=== PATIENT | male | born 1970 | race Caucasian/White ===

== ENCOUNTER 2019-01-20 07:00 | Day surgery (SDC) | payer OTHER ==
[2019-01-20] MEDS ORDERED: cefTRIAXone 2 GM VIAL ONE (07:09)
[2019-01-20] MEDS ORDERED: LACTATED RINGERS 1,000 ML IV ONE ×2 (07:11→10:51)
[2019-01-20] MEDS ORDERED: BUPIVACAINE 0.25% PF 30 ML VIAL ONE (07:55)
[2019-01-20] MEDS ORDERED: EPINEPHrine 1 MG/ML AMP ONE (07:55)
--- NOTE | 2019-01-20 07:56 | ANESTHESIA ---
Pre-Anesthesia VS, & Labs - Diagnosis Right shoulder biceps tendonitis - Procedure Right shoulder arthroscopy, open biceps tenodesis, distal clavicle excision, subacromial decompression Vital Signs: Temp Pulse Resp BP Pulse Ox 36.6 C 66 18 121/78 98 01/20/19 07:25 01/20/19 07:25 01/20/19 07:25 01/20/19 07:25 01/20/19 07:25 Height 5 ft 9.5 in Weight (kg) 90.72 kg - NPO >8 hours Home Medications and Allergies Home Medications: Ambulatory Orders Fluticasone [Flonase] 1 sprays SANDY BID 01/18/19 Loratadine [Claritin] 10 mg PO 01/18/19 Naproxen [Naprosyn] 500 mg PO BID PRN 01/18/19 Omeprazole 20 mg PO 01/18/19 Tramadol HCl [Ultram] 50 mg PO PRN 01/18/19 Fluticasone [Flonase] 1 sprays SANDY BID 01/18/19 Loratadine [Claritin] 10 mg PO 01/18/19 Naproxen [Naprosyn] 500 mg PO BID PRN 01/18/19 Omeprazole 20 mg PO 01/18/19 Tramadol HCl [Ultram] 50 mg PO PRN 01/18/19 Allergies/Adverse Reactions: Allergies Allergy/AdvReac Type Severity Reaction Status Date / Time No Known Drug Allergies Allergy Verified 01/18/19 09:31 Anes History & Medical History - Anesthetic History Anesthesia Complications: reports: No previous complications Family history of Anesthesia Complications: Denies Family history of Malignant Hyperthermia: Denies - Medical History Cardiovascular: reports: None Pulmonary: reports: Sleep apnea, CPAP use Gastrointestinal: reports: GERD Urinary: reports: None Neuro: reports: None Musculoskeletal: reports: None, Chronic back pain, Other Endocrine/Autoimmune: reports: None Blood Disorders: reports: None Skin: reports: None Smoking Status: Former smoker Psychosocial: reports: No issues indicated - Surgical History Eyes Ears Nose Throat (EENT): Tonsil/Adenoidectomy Orthopedic: Shoulder arthroplasty, Other Exam General: Alert Dental: WNL Mouth Opening: Greater than 4 Fingerbreadths Neck Mobility: Reduced Mallampati classification: II Thyromental Distance: greater than 6 cm Respiratory: Lungs clear Cardiovascular: Regular rate Plan Anesthesia Type: General, Interscalene Block Consent for Procedure(s) Verified and Reviewed: Yes Code Status: Attempt Resuscitation ASA classification: 2-Mild systemic disease Is this case an emergency?: No
[2019-01-20] MEDS ORDERED: fentaNYL 100 MCG/2 ML VIAL IVP ONE (08:45)
[2019-01-20] MEDS ORDERED: ONDANSETRON 4 MG/2 ML VIAL IVP ONE (08:45)
[2019-01-20] MEDS ORDERED: PROPOFOL 200 MG/20 ML VIAL IVP ONE (08:45)
[2019-01-20] MEDS ORDERED: NEOSTIGMINE 1 MG/1 ML 10 ML MDV IVP ONE (08:45)
[2019-01-20] MEDS ORDERED: ROCURONIUM 50 MG/5 ML VIAL IVP ONE (08:45)
[2019-01-20] MEDS ORDERED: GLYCOPYRROLATE 1 MG/5 ML VIAL IVP ONE (08:45)
[2019-01-20] MEDS ORDERED: DEXAMETHASONE 4 MG/ML VIAL IVP ONE (08:45)
[2019-01-20] MEDS ORDERED: KETOROLAC 30 MG/ML VIAL IVP ONE (08:45)
[2019-01-20] MEDS ORDERED: MIDAZOLAM 2 MG/2 ML VIAL IVP ONE (08:45)
[2019-01-20] MEDS ORDERED: ROPIVACAINE 0.5% PF 20 ML AMPULE EP ONE (08:45)
[2019-01-20] MEDS ORDERED: BUPIVACAINE 0.25% PF 30 ML VIAL SUBQ ONE ×2 (10:18→11:40)
[2019-01-20] MEDS ORDERED: ONDANSETRON 4 MG/2 ML VIAL IVP PRN (11:56)
[2019-01-20] MEDS ORDERED: oxyCODONE 5 MG TABLET PO PRN (11:56)
--- NOTE | 2019-01-20 12:07 | OPERATIVE REPORT ---
Operative Report - General Procedure Date: 01/20/19 Planned Procedure: right shoulder scope debridement. SAD. DCE. BT Pre-Op Diagnosis: right shoulder pain, impingement. ac arthritis. biceps tendinitis Procedure Performed: Right shoulder scope limited debridement. subacromial decompression open biceps tenodesis open distal clavicle excision Post Op Diagnosis: same - Procedure Note Primary Surgeon: Rosas Solo Secondary Surgeon: Rainer Estimated Blood Loss (mL): 50 Complications: None - Other Other Information/Narrative: DETAILED PROCEDURE: Right shoulder arthroscopy with limited debridement Right shoulder subacromial decompression Right shoulder open biceps tenodesis Right shoulder open distal clavicle excision IMPLANTS: Fiber tach with tape by [email or web address] POSTOPERATIVE PLAN: 0-2 weeks-Sling at all times. Pendulum exercises 5 times per day. 2-6 weeks-Passive and active range of motion without limitations. No active flexion of the biceps 6-12 weeks-Gradually increase strengthening focusing on rotator cuff and scapular stabilizers per protocol. 16 weeks and beyond-Introduce dynamic activities. EXAMINATION UNDER ANESTHESIA: ROM: Full Anterior load and shift: Normal Posterior load and shift: Normal Inferior sulcus: No laxity ARTHROSCOPIC FINDINGS: Rotator interval: Intact Biceps tendon & SLAP: Type II SLAP lesion. Biceps tenodesis was performed Subscapularis: Insertion was intact and probed extensively Rotator Cuff: Intact from the articular and bursal sides HAGL: None Labrum: SLAP tear extended posteriorly but the posterior labrum itself was not unstable Glenoid Cartilage: Intact Humeral Head Cartilage: Intact INDICATION FOR SURGERY: 48-year-old male with right shoulder pain consistent with ac joint arthritis, biceps tendinitis, and subacromial impingement. Symptoms have been present for over 2 years and 4 months ago they got worse to the point where he could no longer do push-ups. Nonoperative managment failed to resolve symptoms. The risks, benefits, and alternatives were discussed. Risks included pain, bleeding, infection, damage to nearby structures, lack of symptom relief, implant complications, stiffness, need for further surgeries, DVT, PE, stroke, and even . He signed a written consent form. PROCEDURE IN DETAIL: The patient was met in the preoperative holding on the day of the procedure. Operative extremity was signed. Consent was verified. They desired to proceed. Regional anesthesia was obtained in the preoperative area. They were brought to the operating room and surrendered to anesthesia. Once general anesthesia was obtained they were placed in the lateral decubitus position with the operative side up. An axillary roll was placed and all bony prominences were well-padded. A surgical timeout was held to confirm the patient procedure, identity, procedure, laterality, allergies, images, and antibiotics. All were in agreement we proceeded. A standard diagnostic arthroscopy was performed utilizing posterior and anterosuperior portals. The anterosuperior portal was created under direct visualization and localized with a spinal needle. The 7 mm cannula was placed anteriorly. The findings of the diagnostic arthroscopy can be found above. I then used a shaver to debride a portion of exuberant synovium as well as the unstable portions of the SLAP lesion. I then used a biter to take the biceps tendon at its insertion and debrided the stump with a shaver. I visualized the posterior labrum from the front and placed a blue cannula in the back. I probed the posterior labral extensively and found there to be a crack but the labrum itself was stable. SUBACROMIAL DECOMPRESSION: The instruments and cannula were then removed from the glenohumeral joint. The scope trocar was placed in the posterior portal and the acromion was felt. It was then inserted just under the acromion scraping along the bone until the CA ligament was felt. The scope trocar was then brought just lateral to the CA ligament and out the anterior incision. The cannula was then brought over the scope trocar arthroscope were inserted. The arthroscope was backed up until the shaver and arthroscope in the subacromial space. I then systemically debrided the bursa using a sucker shaver and radiofrequency ablation wand. A direct lateral incision was made and the bursectomy and decompression was completed through the lateral incision. All soft tissue was debrided from the underside of the acromion and the posterior edge of the CA ligament was lifted. The shaver was placed on bur mode to take the bottom 2 mm of the acromion and any bumps that were protruding. I brought this dissection all the way over to the AC joint and ensure that there was no bony lesions that would cause impingement. Care was taken to keep the deltoid fascia intact. The rotator cuff was then evaluated and there was no full- thickness tear. Final images were taken MINI OPEN BICEPS TENODESIS: A 4 cm incision was made near the axillary fold centered over the pectoralis major tendon. Electrocautery was used to obtain hemostasis. The fascia was opened with dissection scissors. Blunt digital dissection was used to identify the intertubercular groove just under the pectoralis major tendon. The long head of the biceps tendon was visualized within this interval. The short head of the biceps was retracted with my finger and the right angle was used to deliver the tendon of the long head of the biceps out of the wound. A tee elevator was then used to debride all synovial tissue from the intertubercular groove. A fibertack was placed high within the groove. Both limbs of the fibertack were pulled on and it was well fixed. I then whipstitched the biceps tendon starting 2 cm proximal to the musculotendinous junction down to the musculotendinous junction and back up to the same 2 cm location with a single limb of the suture tack. The other suture was placed once through the tendon at the 2 cm location. I then cut all excess tendon off. The suture limb that was passed the single time was then pulled on and this reduced the tendon nicely into the groove. The elbow was fully straightened and there was no excess tension on the repair site. I then tied 7 reverse half hitches alternating to secure the tendon in its place. The wound was then irrigated copiously. OPEN DISTAL CLAVICLE EXCISION: A 5 cm incision was made in line with the clavicle, centered over the acromioclavicular joint. Electrocautery was used to obtain hemostasis. Full-thickness skin flaps were made at the level of the fascia/joint capsule. A full-thickness longitudinal was made longitudinally to open the acromioclavicular joint. Electrocautery was used to dissect the joint capsule from the bony surfaces. 2 Homans were placed around the distal clavicle. Rongeur was used to debride the intra-articular disc. An 8 mm resection was measured and performed with a sagittal saw. Care was taken to ensure this cut was parallel to the joint surface. All sharp bony edges were rounded. A finger was placed with into the defect and the arm was adducted fully without any impingement in the joint. The joint was then irrigated copiously. A watertight capsular and fascial closure was performed with 0 Vicryl. The portal sites were then closed with 3-0 Monocryl buried. Any open incisions were closed with 2-0 Vicryl in the dermis and a running 3-0 Monocryl in the skin. Mastisol and Steri-Strips were applied. A sterile dressing and a sling was applied. A sling was placed. The patient was awakened and transferred to the recovery room.
[2019-01-20 15:05] VITALS: BP 101/60
== END 2019-01-20 07:01 | disposition home or self-care (01) ==
LOC: SDS 07:00
PROVIDERS: ATTEND Orthopaedic Surgery
PROC: 0LS10ZZ Reposition Right Shoulder Tendon, Open Approach (ICD-10-PCS; 2019-01-20)
PROC: 0PB90ZZ Excision of Right Clavicle, Open Approach (ICD-10-PCS; 2019-01-20)
PROC: 0RNJ4ZZ Release Right Shoulder Joint, Percutaneous Endoscopic Approach (ICD-10-PCS; principal; 2019-01-20 08:45)
DX: S43.431A Superior glenoid labrum lesion of right shoulder, initial encounter (principal); M75.21 Bicipital tendinitis, right shoulder; G47.30 Sleep apnea, unspecified; K21.9 Gastro-esophageal reflux disease without esophagitis; M54.9 Dorsalgia, unspecified; G89.29 Other chronic pain; X50.9XXA Other and unspecified overexertion or strenuous movements or postures, initial encounter; Z79.891 Long term (current) use of opiate analgesic; Z87.891 Personal history of nicotine dependence
CPT/HCPCS: 23120; 23430; 29822; C1713; J7120

== ENCOUNTER 2020-02-06 08:11 | Day surgery (SDC) | payer OTHER ==
[2020-02-06] MEDS ORDERED: cefTRIAXone 2 GM VIAL ONE (08:17)
[2020-02-06] MEDS ORDERED: BUPIVACAINE 0.25% PF 30 ML VIAL ONE (08:24)
[2020-02-06] MEDS ORDERED: EPINEPHrine 1 MG/ML AMP ONE (08:27)
[2020-02-06] MEDS ORDERED: LACTATED RINGERS 1,000 ML IV ONE ×2 (08:43→12:15)
[2020-02-06] MEDS ORDERED: MIDAZOLAM 2 MG/2 ML VIAL IVP ONE (08:49)
[2020-02-06] MEDS ORDERED: ONDANSETRON 4 MG/2 ML VIAL IVP ONE (08:49)
[2020-02-06] MEDS ORDERED: KETOROLAC 30 MG/ML VIAL IVP ONE (08:49)
[2020-02-06] MEDS ORDERED: ACETAMINOPHEN 1,000 MG/100 ML 100 ML IV ONE (08:49)
[2020-02-06] MEDS ORDERED: DEXAMETHASONE 4 MG/ML VIAL IVP ONE (08:49)
[2020-02-06] MEDS ORDERED: fentaNYL 100 MCG/2 ML VIAL IVP ONE (08:49)
--- NOTE | 2020-02-06 08:51 | ANESTHESIA ---
Pre-Anesthesia VS, & Labs - Diagnosis left shoulder pain, biceps tendinitis - Procedure left shoulder arthroscopy, subacromial decompression, possible biceps tenodesis Height 5 ft 9.5 in - NPO >8 hours Home Medications and Allergies Fluticasone [Flonase] 1 sprays SANDY BID 01/18/19 Loratadine [Claritin] 10 mg PO 01/18/19 Naproxen [Naprosyn] 500 mg PO BID PRN 01/18/19 Omeprazole 20 mg PO 01/18/19 Tramadol HCl [Ultram] 50 mg PO PRN 01/18/19 Allergies/Adverse Reactions: Allergies Allergy/AdvReac Type Severity Reaction Status Date / Time No Known Drug Allergies Allergy Verified 01/18/19 09:31 Anes History & Medical History - Anesthetic History Anesthesia Complications: reports: No previous complications - Medical History Cardiovascular: reports: None Pulmonary: reports: Sleep apnea, CPAP use Gastrointestinal: reports: GERD Urinary: reports: None Neuro: reports: None Musculoskeletal: reports: None, Chronic back pain, Other Endocrine/Autoimmune: reports: None Blood Disorders: reports: None Skin: reports: None Smoking Status: Former smoker - Surgical History Eyes Ears Nose Throat (EENT): Tonsil/Adenoidectomy Orthopedic: Shoulder arthroplasty, Other Exam General: Alert Dental: WNL Mallampati classification: II Thyromental Distance: greater than 6 cm Respiratory: Lungs clear Cardiovascular: Regular rate, Normal S1, Normal S2 Mental/Cognitive Status: Alert/Oriented X3 Plan Anesthesia Type: General, Interscalene Block Consent for Procedure(s) Verified and Reviewed: Yes Code Status: Attempt Resuscitation ASA classification: 2-Mild systemic disease Is this case an emergency?: No
--- NOTE | 2020-02-06 10:23 | ANESTHESIA PROCEDURE NOTE ---
Diagnosis: left shoulder pain Procedure: left interscalene block Consent for Procedure(s) Verified and Reviewed: Yes Height and Weight: Height 5 ft 9 in Weight (kg) 96.1 kg Vital Signs: Temp Pulse Resp BP Pulse Ox 36.6 C 63 16 119/80 97 02/06/20 08:43 02/06/20 08:43 02/06/20 08:43 02/06/20 08:43 02/06/20 08:43 Allergies No Known Drug Allergies Allergy (Verified 01/18/19 09:31) Requesting Provider: Coby ASA classification: 2-Mild systemic disease Is this case an emergency?: No Anes. Monitoring and Equipment: Non-invasive BP, Pulse oximetery Anes. Procedure Start Time: 08:40 Anes. Procedure Stop Time: 08:46 Procedure Notes: US guidance, see progress notes for image, chloraprep, TO with RN, ropivicaine 20cc 0.5% with 10 cc lidocaine 2% and Decadron 4mg. Injected in 5cc increments to total 30cc, patient tolerated well with light sedation. To OR Anesth Central Line Template - Central Line Central Line Preparation: Consent Obtained
[2020-02-06] MEDS ORDERED: oxyCODONE 5 MG TABLET PO PRN (12:25)
[2020-02-06] MEDS ORDERED: ONDANSETRON 4 MG/2 ML VIAL IVP PRN (12:25)
--- NOTE | 2020-02-06 12:34 | OPERATIVE REPORT ---
Operative Report - Other Other Information/Narrative: Date of Surgery: 06 February 2020 Pre-Op Diagnosis: Left shoulder bursitis/impingement. Left shoulder AC joint arthritis. Left shoulder SLAP tear Procedure: Left shoulder arthroscopy with SLAP debridement, Subacromial decompression, open distal clavicle excision Postop Diagnosis: Left shoulder bursitis/impingement. Left shoulder AC joint arthritis. Left shoulder SLAP tear. Primary Surgeon: Rosas Solo Secondary Surgeon: None Complications: None EBL: 50 cc IMPLANTS: None POSTOPERATIVE PLAN: 0-2 weeks-Sling at all times. Pendulum exercises 5 times per day. 2-6 weeks-Passive and active range of motion without limitations. 6-12 weeks-Gradually increase strengthening focusing on rotator cuff and scapular stabilizers per protocol. 16 weeks and beyond-Introduce dynamic activities. EXAMINATION UNDER ANESTHESIA: ROM: Full Anterior load and shift: Stable Posterior load and shift: Stable Inferior sulcus: Stable ARTHROSCOPIC FINDINGS: Rotator interval: Normal Biceps tendon & SLAP: Type I SLAP tear. Biceps tendon without tear. Biceps anchor intact. SLAP tear was debrided Subscapularis: Normal Rotator Cuff: Normal and without tear HAGL: None Labrum: SLAP tear extended posteriorly but there were no unstable sections Glenoid Cartilage: Normal Humeral Head Cartilage: Normal INDICATION FOR SURGERY: 1 year of insidious onset left shoulder pain that is worse with overhead activities. It is located superiorly and laterally with some mechanical sensations. Imaging confirmed AC joint arthritis and bursitis nonoperative managment failed to resolve symptoms. The risks, benefits, and alternatives were discussed. Risks included pain, bleeding, infection, damage to nearby structures, lack of symptom relief, implant complications, stiffness, need for further surgeries, DVT, PE, stroke, and even . He signed a written consent form. PROCEDURE IN DETAIL: The patient was met in the preoperative holding on the day of the procedure. Operative extremity was signed. Consent was verified. They desired to proceed. Regional anesthesia was obtained in the preoperative area. They were brought to the operating room and surrendered to anesthesia. Once general anesthesia was obtained they were placed in the lateral decubitus position with the operative side up. An axillary roll was placed and all bony prominences were well-padded. A surgical timeout was held to confirm the patient procedure, identity, procedure, laterality, allergies, images, and antibiotics. All were in agreement we proceeded. A standard diagnostic arthroscopy was performed utilizing posterior and anterosuperior portals. The anterosuperior portal was created under direct visualization and localized with a spinal needle. The 7 mm cannula was placed anteriorly. The findings of the diagnostic arthroscopy can be found above. I then used the shaver to debride the SLAP tear back to a stable edge. The biceps anchor was stable and without tear. SUBACROMIAL DECOMPRESSION: The instruments and cannula were then removed from the glenohumeral joint. The scope trocar was placed in the posterior portal and the acromion was felt. It was then inserted just under the acromion scraping along the bone until the CA ligament was felt. The scope trocar was then brought just lateral to the CA ligament and out the anterior incision. The cannula was then brought over the scope trocar arthroscope were inserted. The arthroscope was backed up until the shaver and arthroscope in the subacromial space. I then systemically debrided the bursa using a sucker shaver and radiofrequency ablation wand. A direct lateral incision was made and the bursectomy and decompression was completed through the lateral incision. All soft tissue was debrided from the underside of the acromion and the posterior edge of the CA ligament was lifted. Care was taken to keep the deltoid fascia intact. The bursectomy was brought all the way over to the AC joint and inferior osteophytes of the acromion were smoothed back. The shaver was placed on to bur mode and a decompression of the anterior and central underside of the acromion was performed. The rotator cuff was then evaluated and there was no full-thickness tear. Final images were taken OPEN DISTAL CLAVICLE EXCISION: A 5 cm incision was made in line with the clavicle, centered over the acromioclavicular joint. Electrocautery was used to obtain hemostasis. Full-thickness skin flaps were made at the level of the fascia/joint capsule. A full-thickness longitudinal was made longitudinally to open the acromioclavicular joint. Electrocautery was used to dissect the joint capsule from the bony surfaces. 2 Homans were placed around the distal clavicle. Rongeur was used to debride the intra-articular disc. An 8 mm resection was measured and performed with a sagittal saw. Care was taken to ensure this cut was parallel to the joint surface. All sharp bony edges were rounded. A finger was placed with into the defect and the arm was adducted and brought overhead fully without any impingement in the joint. The joint was then irrigated copiously. A watertight capsular and fascial closure was performed with 0 Vicryl. The portal sites were then closed with 3-0 Monocryl buried. Any open incisions were closed with 2-0 Vicryl in the dermis and a running 3-0 Monocryl in the skin. Mastisol and Steri-Strips were applied. A sterile dressing and a sling was applied. A sling was placed. The patient was awakened and transferred to the recovery room.
[2020-02-06 14:25] VITALS: BP 118/62
== END 2020-02-06 08:12 | disposition home or self-care (01) ==
LOC: SDS 08:11
PROVIDERS: ATTEND Orthopaedic Surgery
DX: M19.012 Primary osteoarthritis, left shoulder (principal); S43.432A Superior glenoid labrum lesion of left shoulder, initial encounter; M75.42 Impingement syndrome of left shoulder; M75.52 Bursitis of left shoulder; X58.XXXA Exposure to other specified factors, initial encounter; K21.9 Gastro-esophageal reflux disease without esophagitis; G47.30 Sleep apnea, unspecified; Z87.891 Personal history of nicotine dependence